=== PATIENT | male | born 1970 | race Two or more races ===

== ENCOUNTER 2018-03-26 06:44 | Emergency (ER) | payer BC ==
[~2018-03-26] VITALS: Ht 170.2 cm; Wt 75.7 kg
[2018-03-26 06:49] VITALS: Ht 170.2 cm; Wt 75.7 kg
[2018-03-26 09:41] LABS: AMPHETAMINE QUAL UR NONE DETECTED (See below)
[2018-03-26 09:59] VITALS: BP 131/64
== END 2018-03-26 09:59 | disposition home or self-care (01) ==
LOC: ED 06:44
PROVIDERS: Emergency Medicine
DX: R50.9 Fever, unspecified (principal); R10.30 Lower abdominal pain, unspecified; R11.0 Nausea; M54.5 Low back pain; G89.29 Other chronic pain; Z98.890 Other specified postprocedural states
CPT/HCPCS: 87804; J7613

== ENCOUNTER 2019-01-03 07:48 | Emergency (ER) | payer BC ==
[~2019-01-03] VITALS: Ht 170.2 cm; Wt 81.2 kg
[2019-01-03 08:35] LABS: BASOPHIL % 0.2 % (0-2); PLATELET COUNT 323 x10^3mcL (130-400)
[2019-01-03 09:53] LABS: ALBUMIN 4.1 g/dL (3.4-5.0); ALKALINE PHOSPHATASE 83 U/L (46-116); ALT/SGPT 60 U/L (16-63); AST/SGOT 33 U/L (15-37); BILIRUBIN TOTAL 0.9 mg/dL (0.20-1.00); CALCIUM 8.9 mg/dL (8.5-10.1); CARBON DIOXIDE 23.8 mmol/L (21-32); CHLORIDE SERUM 102 mmol/L (98-107); GFR1 > 60 mL/min; GLUCOSE SERUM 125 mg/dL (74-106); LIPASE 287 IU/L (73-393); POTASSIUM SERUM 4.1 mmol/L (3.5-5.1); SODIUM SERUM 140 mmol/L (136-145); TOTAL PROTEIN, SERUM 7.6 g/dL (6.4-8.2)
[2019-01-03 10:00] LABS: microscopic required? NO
[2019-01-03 10:05] LABS: urine erythrocyte NEGATIVE (NEGATIVE)
[2019-01-03 11:17] VITALS: BP 118/79
== END 2019-01-03 11:17 | disposition home or self-care (01) ==
LOC: ED 07:48
PROVIDERS: Emergency Medicine
DX: R10.84 Generalized abdominal pain (principal); R11.10 Vomiting, unspecified; G89.29 Other chronic pain; M54.9 Dorsalgia, unspecified; Z98.890 Other specified postprocedural states
CPT/HCPCS: J2405; J3010; J3490; J7030

== ENCOUNTER 2020-01-30 17:13 | Emergency (ER) | payer BC ==
[~2020-01-30] VITALS: Ht 170.2 cm; Wt 79.4 kg
[2020-01-30 17:17] VITALS: Ht 170.2 cm; Wt 79.4 kg
[2020-01-30 17:31] LABS: BASOPHIL % 0.7 % (0-2); PLATELET COUNT 309 x10^3mcL (130-400); RED CELL DISTRIBUTION WIDTH 13.4 % (11.5-14.5)
[2020-01-30 19:55] VITALS: BP 177/130
== END 2020-01-30 19:14 | disposition short-term general hospital (02) ==
LOC: ED 17:13
PROVIDERS: Emergency Medicine
DX: S81.832A Puncture wound without foreign body, left lower leg, initial encounter (principal); Z98.890 Other specified postprocedural states; W32.0XXA Accidental handgun discharge, initial encounter; Y93.89 Activity, other specified; Y92.89 Other specified places as the place of occurrence of the external cause; Y99.8 Other external cause status
CPT/HCPCS: 82962; 90715; J0690; J2270; J2405; J3010; J3490; J7030